=== PATIENT | female | born 1995 | race Caucasian/White ===

== ENCOUNTER 2018-08-28 15:34 | Observation (INO) | payer SELFPAY ==
[~2018-08-28] VITALS: Ht 157.5 cm; Wt 113.4 kg
[2018-08-28] MEDS ORDERED: LR(*) 1000 ML BAG 1,000 ML IV ONE (16:40)
[2018-08-28] MEDS ORDERED: FLUSH 10 ML SYR IVP PRN (16:40)
[2018-08-28 17:30] VITALS: BP 131/63; Ht 157.5 cm; Wt 113.4 kg
[2018-08-28] MEDS ORDERED: DLR 500 ML BAG 500 ML IV ONE (18:40)
[2018-08-28] MEDS ORDERED: LR(*) 1000 ML BAG 1,000 ML IV SCH (18:40)
[2018-08-28] MEDS ORDERED: DLR(*) 1000 ML BAG 1,000 ML IV ONE (18:58)
[2018-08-28] MEDS ORDERED: BETAMETHASONE/ACETATE 6 MG/1ML IM SCH (19:00)
[2018-08-28] MEDS ORDERED: PREN-127 PO (20:13)
--- NOTE | 2018-08-28 21:03 | History & Physical ---
History of Present Illness Age of Patient: 22 : 2 Para or TPAL: 1 EDC per LMP: Sep 22, 2018 EDC per U/S: Sep 22, 2018 Estimated Gestational Age: 36.2 Chief Complaint Abdominal pain, dizziness, decreased movement. History of Present Illness , h/o term PLTCS due to second stage arrest in 2017. She has an 18 month old daughter. She recently moved her from [place], vague reason for moving here. Pt states she is living in a motel for now. 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 PT reports has been healthy with no problems. She is planning on repeat c/s. She denies LOF, CTX or VB. History Patient's Blood Type: A Positive Rubella Status: Immune Group B Strep Screen: Positive Past Medical History: Heart murmur Allergies: Coded Allergies: No Known Drug Allergies (Unverified , 08/28/18) Social History: no tobacco, etoh or illicits, unemployed. Recently moved to [facility] [place], [place] Home Meds Reported Medications Vits W-Ca,Fe,Fa(<1MG) ( VITAMINS) 1 Each Tablet, 1 EACH PO DAILY, TAB 08/28/18 Review of Systems Constitutional: Weight Gain Neurological: Weakness, Dizziness Eyes: No Vision Change Cardiovascular: No Chest Pain, No Palpitations Respiratory: No Shortness of Breath, No Cough Gastrointestinal: No Nausea, No Vomiting; Abdominal Pain (RUQ) Genitourinary: No Dysuria Psychiatric: No Depression, No Anxiety Exam General Exam Vital Signs Vital Signs Date Time Temp Pulse Resp B/P (MAP) Pulse Ox O2 Delivery O2 Flow Rate FiO2 08/28/18 17:30 98.3 92 22 131/63 (85) 96 Room Air General Apperance: Alert/Awake/No Acute Distress Neuro: No Gross deficits Eyes: Normal Extraocular Movement & Vison ENT: Normal Cardiovascular: Regular Rate and Rhythm Respiratory: No Respiratory Distress, Clear to Auscultation Abdomen: Soft, Non-Tender, Non-Distended, Gravid - Non-Tender Musculoskeletal: No Weakness/Pain Extremities: No Cyanosis,Clubbing or Edema Integumentary: Skin Intact without Lesions or Rash Psychological: Alert & Oriented X3, Appropriate Mood & Affect Cervical Dialation: 1 Cervical Effacement (%): 50 Cervical Consistency: Moderate Cervical Position: Posterior Station: -3 Presentation: Vertex (by u/s) Uterine Contraction Strength: Mild UC Resting Tone: Soft Fetus Feeling Movement?: Yes Heart Tones: 135 Heart Tone Variabilty: Moderate FHT Accelerations: Present FHT Decelerations: None FHT Category: I 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 Pt rec'd one dose of BMZ so far and will plan second dose tomorrow. Pt not feeling ctx at this time and cervix is unchanged. No tocolytics at this time. Will re-examine SVE in AM and if no change will d/c to home. (2) H/O: Status: Chronic Assessment & Plan: Plan RCS at 39 weeks. Pt will see me in office on Friday at 1430, will schedule surgery at that time. GRIS BACK DO Aug 28, 2018 21:03
[2018-08-28] MEDS ORDERED: ACETAMINOPHEN 325 MG TAB PO PRN (21:15)
[2018-08-28] MEDS ORDERED: CALCIUM CARBONATE 500 MG CHEW PO PRN (21:15)
[2018-08-28] MEDS ORDERED: ONDANSETRON 4 MG/2 ML VIAL IVP PRN (21:15)
[2018-08-28] MEDS ORDERED: diphenhydrAMINE 25 MG CAP PO ONE (21:15)
--- NOTE | 2018-08-29 10:05 | OB/GYN Discharge Summary ---
Discharge Summary Reason for Hosp/Final Diag: (1) uterine contractions in third trimester, antepartum Status: Acute Hospital Course & Plan: Ctx have spaced out overnight with IV hydration. Pt does not feel ctx and SVE is unchanged. PT to follow up in office in Friday for ob check. We will schedule her RCS at that time. (2) H/O: Status: Chronic Hospital Course & Plan: Plan to repeat c/s at 39 weeks Lates Vital Signs Vital Signs Date Time Temp Pulse Resp B/P (MAP) Pulse Ox O2 Delivery O2 Flow Rate FiO2 08/28/18 17:30 98.3 92 22 131/63 (85) 96 Room Air Weight (Pounds): 250 Condition: Improved Discharge: Home, Self Nursing Home Meds Reported Medications Vits W-Ca,Fe,Fa(<1MG) ( VITAMINS) 1 Each Tablet, 1 EACH PO DAILY, TAB 08/28/18 Follow up with: [facility] [phone] (Pt has appt on Friday with Dr. Ellis at 1430) Discharge Diet: As Tolerates, Increase Fluid Intake Discharge Activity: As Tolerates GRIS ELLIS DO Aug 29, 2018 10:05
== END 2018-08-29 10:02 | disposition home or self-care (01) ==
LOC: OB 15:34
PROVIDERS: ADMIT Obstetrics & Gynecology; ATTEND Obstetrics & Gynecology
DX: O47.03 False labor before 37 completed weeks of gestation, third trimester (principal); O36.8130 Decreased fetal movements, third trimester, not applicable or unspecified; Z3A.36 36 weeks gestation of pregnancy
CPT/HCPCS: 81001; G0378; G0379; J0702; J2405; J7120; Q0163; 96372

== ENCOUNTER → 2018-08-29 | Outpatient (CLI) | payer SELFPAY ==
[2018-08-28 17:30] VITALS: BMI 45.7
[~2018-08-29] MED LIST: BETAMETHASONE/ACETATE 6 MG/1ML IM ONLY ONE; DOCU240C67 PO; FERR-53 PO; IBUP800T37 PO; OXYC-865 PO; PREN-127 PO
--- NOTE | 2018-08-29 19:33 | NUR ---
Pt here for repeat Betamethasone steroid shot. Pt affirms movement, denies regular or painful UC's, denies signs of SROM or bleeding. Pt denies any pre-eclamptic symptoms. Denies any further concerns. Questions addressed. -Nafisa Chanel RN
== END ==
LOC: LAB 19:17
PROVIDERS: ATTEND Obstetrics & Gynecology
DX: O47.03 False labor before 37 completed weeks of gestation, third trimester (principal); Z3A.36 36 weeks gestation of pregnancy

== ENCOUNTER 2018-08-31 20:14 | Outpatient (CLI) | payer SELFPAY ==
[2018-08-28 17:30] VITALS: BMI 45.7
[~2018-08-31 20:14] MED LIST changes: -BETAMETHASONE/ACETATE 6 MG/1ML IM ONLY ONE; -DOCU240C67 PO; -FERR-53 PO; -IBUP800T37 PO; -OXYC-865 PO
[2018-08-31] MEDS ORDERED: FAMOTIDINE(*) 20MG/50ML PREMIX 50 ML IVPB PRN (20:27)
[2018-08-31] MEDS ORDERED: LR(*) 1000 ML BAG 1,000 ML IV PRN (20:27)
[2018-08-31] MEDS ORDERED: ceFAZolin(*) 2GM/D5W 50ML 50 ML IVPB PRN (20:27)
[2018-08-31] MEDS ORDERED: METOCLOPRAMIDE 10 MG/2 ML SDV IVP PRN (20:30)
== END 2018-08-31 22:03 | disposition home or self-care (01) ==
LOC: L&D 20:14 → UNDOADMOB 20:14 → OB 20:14 → UNDODISOB 22:03 → L&D 22:03 → EDSTATUS 09-02 20:00
PROVIDERS: ATTEND Obstetrics & Gynecology
DX: O47.03 False labor before 37 completed weeks of gestation, third trimester (principal); Z3A.36 36 weeks gestation of pregnancy
CPT/HCPCS: 81001; 99213; G0378; G0379

== ENCOUNTER 2018-09-04 06:59 | Inpatient (IN) | payer SELFPAY ==
[2018-08-28 17:30] VITALS: Ht 154.9 cm
[2018-09-04] VITALS (18 sets, daily range): BP systolic 93–128; BP diastolic 45–104
[2018-09-04] MEDS ORDERED: fentaNYL CITR 100 MCG/2 ML AMP ONE (07:36)
[2018-09-04] MEDS ORDERED: MORPHINE PF 5 MG/10 ML AMP ONE (07:36)
[2018-09-04] MEDS ORDERED: FAMOTIDINE(*) 20MG/50ML PREMIX 50 ML IVPB ONE (07:46)
[2018-09-04] MEDS ORDERED: CITRIC ACID/SOD CIT 15 ML UDC ONE (07:47)
[2018-09-04] MEDS ORDERED: NORMOSOL R SOLN(*) 1000 ML BAG 1,000 ML IV ONE ×2 (07:47→09:45)
[2018-09-04] MEDS ORDERED: CITRIC ACID/SOD CIT 15 ML UDC PO ONE (07:50)
[2018-09-04] MEDS ORDERED: FAMOTIDINE 20 MG/50 ML PREMIX IVPB ONE (07:50)
[2018-09-04] MEDS ORDERED: ceFAZolin(*) 1 GM VIAL 3 GM in NS(*) 0.9% 100 ML BAG 100 ML IVPB ONE ×2 (07:55→08:05)
[2018-09-04] MEDS ORDERED: METOCLOPRAMIDE 10 MG/2 ML SDV ONE (08:06)
[2018-09-04 08:23] LABS: PLATELET COUNT, AUTOMATED 236 K/uL (150-450)
--- NOTE | 2018-09-04 08:27 | History & Physical ---
History of Present Illness Age of Patient: 22 : 2 Para or TPAL: 1001 Estimated Gestational Age: 39 Chief Complaint Loss of fluid History of Present Illness Pt reports LOF at 500 am today. She is having good FM, some CTX but no bleedin g. She is reports being in good health. She has had one prior c/s about 18 months ago. History Allergies: Coded Allergies: No Known Drug Allergies (Unverified , 08/28/18) Social History: no tobacco, etoh or illicits, unemployed. Recently moved to [place] [employer] [facility] Meds Reported Medications Vits W-Ca,Fe,Fa(<1MG) ( VITAMINS) 1 Each Tablet, 1 EACH PO DAILY, TAB 08/28/18 Review of Systems Constitutional: Weight Gain; No Fever Cardiovascular: No Chest Pain, No Palpitations Respiratory: No Shortness of Breath, No Cough Gastrointestinal: No Nausea, No Vomiting Genitourinary: No Dysuria Psychiatric: No Depression, No Anxiety Exam General Exam General Apperance: Alert/Awake/No Acute Distress Neuro: No Gross deficits Eyes: Normal Extraocular Movement & Vison Respiratory: No Respiratory Distress Abdomen: Gravid - Non-Tender Musculoskeletal: No Weakness/Pain Extremities: No Cyanosis,Clubbing or Edema Integumentary: Skin Intact without Lesions or Rash Psychological: Alert & Oriented X3, Appropriate Mood & Affect Vaginal Discharge/Fluid?: Clear Fluid, Other (Gross pooling on sterile speculum exam by Dr. 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 Informed consent obtained. Risks, benefits and alternatives reviewed with pt. ) Problems: (1) SROM (spontaneous rupture of membranes) Status: Acute Assessment & Plan: Will proceed with PLTCS at this time . (2) Previous section complicating Status: GRIS Hodges DO Sep 04, 2018 08:27
[2018-09-04] MEDS ORDERED: OXYTOCIN 10 UNIT/ML SDV ONE (08:38)
[2018-09-04] MEDS ORDERED: PHENYLEPHRINE 10 MG/1 ML VIAL ONE (08:38)
[2018-09-04] MEDS ORDERED: KETOROLAC 30 MG/ML VIAL ONE (08:38)
[2018-09-04] MEDS ORDERED: ONDANSETRON 4 MG/2 ML VIAL ONE (08:38)
[2018-09-04] MEDS ORDERED: ePHEDrine 25 MG/5 ML DISP.SYR IVP ONE (08:38)
[2018-09-04] MEDS ORDERED: PROMETHAZINE 25 MG/ML 1 ML AMP IVP PRN (09:25)
[2018-09-04] MEDS ORDERED: ACETAMINOPHEN 325 MG TAB PO PRN (09:25)
[2018-09-04] MEDS ORDERED: LANOLIN OINT 7 GM TUBE TP PRN (09:25)
[2018-09-04] MEDS ORDERED: MAGNESIUM HYDROXIDE* 30ML UDCP PO PRN (09:25)
[2018-09-04] MEDS ORDERED: INFLUENZA VIRUS VAC 0.5ML SYR IM ONE (09:25)
[2018-09-04] MEDS ORDERED: SIMETHICONE 80 MG CHEW CHEW PRN (09:25)
[2018-09-04] MEDS ORDERED: ONDANSETRON 4 MG/2 ML VIAL IV PRN (09:25)
--- NOTE | 2018-09-04 09:28 | Post Operative Note ---
Operative Note - FACIALIST Operative Day Date: Sep 04, 2018 Physicians Surgeon: Dr. Ellis Rail Maintenance Worker: Dr. Kwon, preschool assistant was deemed necessary due to large BMI of patient and lack of surgical wheelchair van operator first responder or surgical scrub technician Anesthesia: Spinal Diagnosis Pre-Op Diagnosis: IUP at 37 weeks, SROM, prior c/s x 1, declines TOLAC due to short interval Post-Op Diagnosis: NATHAN Procedure Findings: Viable cph female, 8lb 3 oz, normal appearing uterus, tubes and ovaries Procedure(s): RLTCS Specimen Removed:(Maybe N/A): Placenta, umbilical cord blood Complications: none Fluids Estimated Blood Loss: 600 cc Dictated Date OP Note Dictated: Sep 04, 2018 GRIS ELLIS DO Sep 04, 2018 09:28
--- NOTE | 2018-09-04 09:33 | Anesthesia OB Pre-Anes Eval ---
History of Present Illness Anesthesia Start Date: Sep 04, 2018 Anesthesia Start Time: 08:20 OB Anesthesia Diagnosis: spontaneous ROM, repeat c/section Current Complication: obesity EDC: Sep 22, 2018 : 2 Para: 1 Pain Ratin Heart Tones: 128 Result Diagram: 09/04/18 0808 Height (Inches): 61 Weight (Pounds): 250 BMI (kg/m2): 48 Past Medical History Medical History: obesity Surgical History: Previous Anesthesia: epidural Attended Childbirth Classes?: No Hx Anesthesia Reactions: No Hx Family Anesthesia Reaction: No Past Complications: obesity Home Meds Reported Medications Vits W-Ca,Fe,Fa(<1MG) ( VITAMINS) 1 Each Tablet, 1 EACH PO DAILY, TAB 08/28/18 Allergies: Coded Allergies: No Known Drug Allergies (Unverified , 08/28/18) Anesthesia OB ROS Neurological: No migraines/headaches, No seizures, No neuropathy, No other ENT: Denies Tooth caps, Denies Loose teeth, Denies Chipped teeth, Denies Dentures, Denies Bridges, Denies Retainers, Denies Veneers, Denies Implants, Denies Tongue ring, Denies Other Pulmonary: No asthma, No smoker (pks/day/yrs), No other Airway Class: lll Cardiovascular ROS: No edema, No arrhythmia, No other GI ROS: NPO Last Solids Date: Sep 04, 2018 Last Solids Time: 05:00 ROS: No Herpes, No STD(s), No Liver Disease, No Renal Disease, No Other Endocrine ROS: other (m.obese) Musculoskeletal ROS: No low back pain, No low back injury, No scoliosis, No other ASA Classification: 3 Assessment and Plan Anesthesia Plan: SAB Anesthesia Stop Day: Sep 04, 2018 Anesthesia Stop Time: 09:20 KAMRAN CORDOBA CRNA Sep 04, 2018 09:33
[2018-09-04] MEDS ORDERED: NALBUPHINE HCL 10 MG/ML AMP IVP PRN (09:45)
--- NOTE | 2018-09-04 09:57 | NUR ---
VSS. SPINAL REMAINS HIGH. WILL CHECK BP WITH ROLLING AND IF STABLE WILL TRANSFER TO PHASE II. MOC STABLE MILD BLOOD DISHARGE NOTED WITH FUNDUS MASSAGE.
--- NOTE | 2018-09-04 10:05 | NUR ---
URINE OUTPUT IN ROOM. PALE YELLOW. BAG OF FLUIDS GIVEN ADVISED BOLUS.
--- NOTE | 2018-09-04 12:27 | OPERATIVE REPORT 1 ---
EVENT DATE: September 04, 2018 SURGEON: Irina Ellis DO ANESTHESIOLOGIST: Nahomi Burkett CRNA ANESTHESIA: Spinal. INSIDE WIREMAN: Jessica Kwon MD The mobile unit assistant was deemed necessary due to the patient's large BMI and the lack of a surgical product sales consultant or surgical product sales consultant. PREOPERATIVE DIAGNOSIS Intrauterine at 37 weeks with spontaneous rupture of membranes and prior section x1. Declines trial of labor after caesarean due to short interval . POSTOPERATIVE DIAGNOSIS 1. Intrauterine at 37 weeks with spontaneous rupture of membranes and prior section x1. Declines trial of labor after caesarean due to short interval . 2. Delivery of a viable cephalic female infant weighing 8 pounds 3 ounces. PROCEDURE PERFORMED Repeat section. ESTIMATED BLOOD LOSS 600 cc. TISSUES REMOVED Placenta and umbilical cord. COMPLICATIONS None. DISPOSITION Stable to recovery room. DESCRIPTION OF PROCEDURE After inform consent was obtained, the patient was taken to the operating room. Spinal anesthesia was administered and found to be adequate. She was placed on the operating room in the supine position with a leftward tilt and then prepped and draped in normal sterile fashion. Pfannenstiel skin incision was made using the scalpel and carried down to the underlying layer of the fascia Fascia was incised in the midline and extended out laterally with sharp dissection. Dickson clamps were then placed along the fascial edges and the fascia was tinted up. The underlying rectus muscles were dissected off sharpy. The rectus muscles were then in the midline and peritoneal incision was entered digitally and then extended out laterally with sharp dissection with good visualization of both bowel and bladder. At this time, the Fidel retractor was placed into the abdomen and secured. Bladder flap was created using sharp dissection and the lower uterine segment was incised in a transverse curvilinear fashion. Infant's head was delivered atraumatically followed by the shoulders and body. The was vigorous at . Nose and mouth were bulb suctioned. Three vessel cord was doubly clamped and cut after 30 second delay and was handed off to awaiting nursery staff. At this time, a segment of cord was doubly clamped and cut and passed off for assessment of cord blood. The placenta was then delivered manually. Uterus was exteriorized and cleared of all clots and debris and hysterotomy incision was repaired in a running locked fashion using 0 Vicryl. Excellent hemostasis resulted along the hysterotomy incision. Irrigation was performed. Uterus was returned back to the abdomen. Gutters were cleared of any remaining clots and debris. Hysterotomy incision was revisualized and noted to remain dry. We proceeded with closure of the fascia. Fascia was reapproximated using #1 Vicryl. Subcutaneous layer was dry after irrigation and reapproximated using a double layer of 3-0 Vicryl. The skin was closed using camryn. A pressure dressing was applied. The patient tolerated the procedure well. Sponge, lap and instrument counts were correct and she was taken to the recovery room in stable condition. JOSEMANUEL
[2018-09-04] MEDS: DLR(*) 1000 ML BAG 1,000 ML IV PRN ×2 (14:52→22:49)
[2018-09-04] MEDS ORDERED: KETOROLAC 30 MG/ML VIAL IVP SCH (15:00)
[2018-09-04 19:00] LABS: PLATELET COUNT, AUTOMATED 210 K/uL (150-450)
--- NOTE | 2018-09-04 20:28 | OB/GYN Progress Note ---
OB Subjective Progress Notes Subjective She is feeling very well. Pain is well controlled. Tolerating po, although she did have one episode of vomiting after she drank a lot of fluid quickly. No nausea or vomiting since then. Minimal ambulation so far. Joyce in. No chest pain, shortness of breath or dizziness. OB Objective Physical Exam Vital Signs Date Time Temp Pulse Resp B/P (MAP) Pulse Ox O2 Delivery O2 Flow Rate FiO2 09/04/18 19:23 Nasal Cannula 1.0 09/04/18 19:23 98.2 79 16 109/45 (66) 97 General Appearance: Alert/Awake/No Acute Distress Neurological: No Gross deficits Eyes: Normal Extraocular Movement & Vison Cardiovascular: Normal Rhythm & Peripheral Pulses, Regular Rate and Rhythm Respiratory: No Respiratory Distress, Clear to Auscultation Abdomen: Soft, Non-Tender, Non-Distended Incision: Clean, Dry, Intact, Dressing Extremities: No Cyanosis,Clubbing or Edema Integumentary: Skin Intact without Lesions or Rash Psychological: Alert & Oriented X3, Appropriate Mood & Affect Result Diagram: 09/04/18185009/04/181850 Assessment and Plan Problems: (1) Status post delivery Assessment & Plan: POD#0 s/p RLTCD after SROM. She is doing well. Only concern is low urine output. I suspect this is due to ADH and not diuresing, as she had appropriate drop in Hgb after surgery and normal BMP. Her vitals are stable. Normal exam with soft abdomen. Will monitor closely. Will encourage ambulation. ARIELLA CRESPO MD Sep 04, 2018 20:28
[2018-09-04] MEDS ORDERED: OXYC-865 PO (20:29)
[2018-09-04] MEDS ORDERED: IBUP800T37 PO (20:29)
[2018-09-04] MEDS: KETOROLAC 30 MG/ML VIAL IVP SCH (22:49)
[2018-09-04] MEDS: FAMOTIDINE 20 MG TAB PO SCH (22:49)
[2018-09-04] MEDS: DOCUSATE CALCIUM 240 MG CAP PO SCH (22:49)
[2018-09-05 02:50] VITALS: BP 94/56
[2018-09-05] MEDS: KETOROLAC 30 MG/ML VIAL IVP SCH (04:54)
[2018-09-05 06:26] LABS: PLATELET COUNT, AUTOMATED 175 K/uL (150-450)
[2018-09-05] MEDS: oxyCODON/ACET (*)5/325MG (CII) 1 TAB TAB PO PRN ×5 (07:47→22:59)
[2018-09-05] MEDS: DOCUSATE CALCIUM 240 MG CAP PO SCH ×2 (07:48→20:37)
[2018-09-05] MEDS: FAMOTIDINE 20 MG TAB PO SCH ×2 (07:48→20:37)
[2018-09-05 08:45] VITALS: BP 115/54
[2018-09-05] MEDS ORDERED: IBUPROFEN 800 MG TAB PO SCH (09:00)
--- NOTE | 2018-09-05 09:54 | OB/GYN Progress Note ---
OB Subjective Progress Notes Subjective Doing well. Pain controlled with oral medications. Tolerating regular diet. Ambulating. Voiding. Normal lochia. No preeclampsia symptoms. No CP/SOB/dizziness. OB Objective Physical Exam Vital Signs Date Time Temp Pulse Resp B/P (MAP) Pulse Ox O2 Delivery O2 Flow Rate FiO2 09/05/18 08:45 97.9 91 18 115/54 (74) 93 Room Air 09/05/18 02:50 2.0 Intake and Output 09/05/18 07:03 Intake Total 7350 ml Output Total 3140 ml Balance 4210 ml Intake Oral 3100 ml IV Total 4250 ml Output Urine Total 1625 ml Emesis 700 ml Estimated Blood Loss 815 ml General Appearance: Alert/Awake/No Acute Distress Neurological: No Gross deficits Eyes: Normal Extraocular Movement & Vison Cardiovascular: Normal Rhythm & Peripheral Pulses, Regular Rate and Rhythm Respiratory: No Respiratory Distress, Clear to Auscultation Abdomen: Soft, Non-Tender, Non-Distended Incision: Clean, Dry, Intact Extremities: No Cyanosis,Clubbing or Edema Integumentary: Skin Intact without Lesions or Rash Psychological: Alert & Oriented X3, Appropriate Mood & Affect Result Diagram: 09/05/18 0546 09/04/18 6131 Assessment and Plan Problems: (1) Status post delivery Assessment & Plan: POD#1 s/p RLTCD after SROM. She is doing well. Urine output has improved. She has camryn out that can be removed 09/09 in clinic by a nurse. Continue routine postop cares. (2) Postoperative anemia Assessment & Plan: Hgb 8.8. She is asymptomatic. She also received a lot of fluid yesterday which may cause some dilutional effect. Will start FeSO4, and monitor for symptoms. ARIELLA CRESPO MD Sep 05, 2018 09:54
[2018-09-05] MEDS: IBUPROFEN 800 MG TAB PO SCH ×2 (10:07→17:56)
--- NOTE | 2018-09-05 11:44 | Anesthesia Post Eval Note ---
Anesthesia Post Eval Note Hematology Test 09/05/18 05:46 White Blood Count 10.3 k/uL (4.5-11.0) Red Blood Count 3.31 M/uL (4.17-5.56) L Hemoglobin 8.8 g/dL (12.0-16.0) *L Hematocrit 26.8 % (34.0-47.0) *L Mean Corpuscular Volume 80.9 fL (80.0-96.0) Mean Corpuscular Hemoglobin 26.5 pg (26.0-33.0) Mean Corpuscular Hemoglobin Concent 32.7 g/dL (32.0-36.0) Red Cell Distribution Width 16.5 % (11.5-14.5) H Platelet Count 175 K/uL (150-450) Mean Platelet Volume 9.0 fL (7.2-11.1) Neutrophils (%) (Auto) 75.8 % (39.4-72.5) H Lymphocytes (%) (Auto) 16.6 % (17.6-49.6) L Monocytes (%) (Auto) 6.6 % (4.1-12.4) Eosinophils (%) (Auto) 0.6 % (0.4-6.7) Basophils (%) (Auto) 0.4 % (0.3-1.4) Nucleated RBC Relative Count (auto) 0.0 /100WBC Neutrophils # (Auto) 7.8 K/uL (2.0-7.4) H Lymphocytes # (Auto) 1.7 K/uL (1.3-3.6) Monocytes # (Auto) 0.7 K/uL (0.3-1.0) Eosinophils # (Auto) 0.1 K/uL (0.0-0.5) Basophils # (Auto) 0.0 K/uL (0.0-0.1) Nucleated RBC Absolute Count (auto) 0.00 K/uL Chemistry Test 09/04/18 18:51 Sodium Level 134 mmol/L (137-145) Potassium Level 4.3 mmol/L (3.5-5.0) Chloride Level 103 mmol/L (98-107) Carbon Dioxide Level 26 mmol/L (22-31) Blood Urea Nitrogen 10 mg/dl (7-18) Creatinine 0.60 mg/dl (0.52-1.04) Glomerular Filtration Rate Calc > 60.0 Random Glucose 96 mg/dl (75-110) Calcium Level 8.5 mg/dl (8.4-10.2) Vital Signs Date Time Temp Pulse Resp B/P (MAP) Pulse Ox O2 Delivery O2 Flow Rate FiO2 09/05/18 08:45 97.9 91 18 115/54 (74) 93 Room Air 09/05/18 02:50 2.0 Pt able to participate in Eval: Yes Cardiovascular Status: Satisfactory Respiratory Status: Satisfactory Pain Managment: Satisfactory PO Nausea/Vomiting: Satisfactory Temperature Management: Satisfactory Mental Status: Satisfactory, Alert, Oriented X3 Post-Op Hydration Status: Satisfactory, Tolerating PO Well, Voiding w/o Difficulty Anesthesia Type: SAB Anesthesia Tolerance: Post op day one after repeat cs. She has ambulated and has full senstion. Reports mild itching. Signs of infection are reviewed, and pt agrees to seek medical intervention should these or persistent ARGUETA occur. Stick site is w/o redness swelling or drainage. ELBERT STEELE CUSHION FORMER Sep 05, 2018 11:44
[2018-09-05 14:00] VITALS: BP 121/61
[2018-09-05] MEDS: FERROUS SULFATE 325 MG TAB PO SCH (17:55)
[2018-09-05 20:41] VITALS: BP 122/76
[2018-09-06 02:29] VITALS: BP 145/76
[2018-09-06] MEDS: IBUPROFEN 800 MG TAB PO SCH ×2 (02:30→10:18)
[2018-09-06] MEDS: oxyCODON/ACET (*)5/325MG (CII) 1 TAB TAB PO PRN ×2 (04:58→11:00)
[2018-09-06] MEDS: FERROUS SULFATE 325 MG TAB PO SCH (08:34)
[2018-09-06] MEDS: DOCUSATE CALCIUM 240 MG CAP PO SCH (08:34)
[2018-09-06] MEDS: FAMOTIDINE 20 MG TAB PO SCH (08:34)
[2018-09-06 09:10] VITALS: BP 147/76
[2018-09-06] MEDS ORDERED: MEASLES,MUMP,RUBELLA VAC 0.5ML SUBQ ONE (09:25)
[2018-09-06] MEDS ORDERED: DIPHTH/TETANUS/ACEL. PERTUSSIS IM ONLY ONE (09:25)
--- NOTE | 2018-09-06 09:26 | OB/GYN Discharge Summary ---
Discharge Summary Reason for Hosp/Final Diag: (1) Status post delivery Onset Date: ~ 09/04/2018 Status: Acute Hospital Course & Plan: Reason for Hospitalization: IUP at 37 weeks, SROM, prior c/s x 1, declines TOLAC due to short interval Procedures Performed: Delivery Delivery Type: C/S Hospital Course: uncomplicated delivery and period Delivery Information: see delivery note Estimated blood loss: 600 Episiotomy: none Laceration: n/a Pain Management: spinal Subjective: Pt is feeling well today and ready to go home Abdominal pain: mild, tolerating with Percocet and ibuprofen Perineal pain: none Vaginal bleeding: minimal without clots Flatus: yes UTI symptoms: Denies Feeding modality: Breast Problems with breast feeding: none Bowel movement: no Ambulating: yes Preeclampsia symptoms: denies Nausea/vomiting: none Objective Exam: Vitals: normotensive and afebrile Breasts: soft, non tender, nipples intact and everted, + colostrum Abdomen: FF at the U Perineum: intact Lochia: not clots, normal flow Extremities: BLE soft and nontender, -homans sign Disposition: Patient discharged to home in medically stable condition. No Known Allergies Medication Instructions Given to the Patient at Discharge: Ibuprofen 800mg PO TID for 5-7 days as needed Colace 240mg po BID while taking iron Ferrous Sulfate 325 PO BID anemia Percocet 5/325 1-2 tabs every 4-6 hours PRN pain Follow-up Appointment: [address] Ellis. Activity/Restrictions: Pelvic rest; nothing in vagina for six weeks, no lifting greater than 10lbs for 6 weeks Return Precautions: Patient instructed to call the clinic or return to hospital for fever > 101 degree F; chills; severe nausea or vomiting; inability to tolerate anything by mouth for > 24 hours; increasingly severe abdominal/pelvic pain; foul smelling vaginal discharge; vaginal bleeding > 1 pad per hour for > 2 hours; separation, drainage, or redness of incision or laceration site. Reviewed depression and pre-eclampsia s/s and when to seek care. (2) Postoperative anemia Hospital Course & Plan: Hgb 8.8. She is asymptomatic. She also received a lot of fluid on Friday which may have caused some dilutional effect. FeSO4 started, and monitor for symptoms. Lates Vital Signs Vital Signs Date Time Temp Pulse Resp B/P (MAP) Pulse Ox O2 Delivery O2 Flow Rate FiO2 09/06/18 02:29 97.7 12 145/76 (99) 09/05/18 14:00 98 92 Room Air 09/05/18 02:50 2.0 Weight (Pounds): 250 Result Diagram: 09/05/18 0546 09/04/18 9381 Condition: Improved Discharge: Home Home Meds Active Scripts Docusate Calcium (DOCUSATE CALCIUM) 240 Mg Capsule, 240 MG PO BID, #60 CAPSULE 2 Refills Prov:AASHISH BOOTH CNM 09/06/18 Ferrous Sulfate (FERROUS SULFATE) 325 Mg Tablet, 325 MG PO BIDBS, #60 TAB 2 Refills Prov:AASHISH BOOTH CNM 09/06/18 Oxycodone Hcl/Acetaminophen (PERCOCET 5-325 MG TABLET) 1 Each Tablet, 1 TAB PO Q4-6H PRN for pain, #20 TAB 0 Refills Prov:ARIELLA CRESPO MD 09/04/18 Ibuprofen (IBUPROFEN) 800 Mg Tablet, 1 TAB PO Q8H PRN for pain, #30 TAB 0 Refills TAKE WITH FOOD EVERY 8 HOURS Prov:ARIELLA CRESPO MD 09/04/18 Reported Medications Vits W-Ca,Fe,Fa(<1MG) ( VITAMINS) 1 Each Tablet, 1 EACH PO DAILY, TAB 08/28/18 Follow up Referrals: SENIOR NETWORK ADMINISTRATOR - In Two Weeks @ [facility] with GRIS ELLIS DO Follow up in: 2 wks PO Discharge Diet: As Tolerates Discharge Activity: No Heavy Lifting x 6 wks, No Heavy Lifting > 10lb, Pelvic Rest Special Instructions: AASHISH BOOTH CNM Sep 06, 2018 09:26
[2018-09-06] MEDS ORDERED: DOCU240C67 PO (09:27)
[2018-09-06] MEDS ORDERED: FERR-53 PO (09:27)
== END 2018-09-06 13:55 | disposition home or self-care (01) | DRG 788 ==
LOC: OB 06:59
PROVIDERS: ADMIT Obstetrics & Gynecology; ATTEND Obstetrics & Gynecology
PROC: 10D00Z1 Extraction of Products of Conception, Low, Open Approach (ICD-10-PCS; principal; 2018-09-04 08:20)
DX: O34.211 Maternal care for low transverse scar from previous cesarean delivery (principal); Z3A.37 37 weeks gestation of pregnancy; O99.214 Obesity complicating childbirth; E66.9 Obesity, unspecified; Z37.0 Single live birth
CPT/HCPCS: 36415; 82310; 82374; 82435; 82565; 82947; 84132; 84295; 84520; 85025; 86850; 86900; 86901; J0690; J1885; J2270; J2300; J2370; J2405; J2590; J2765; J3010; J7050